=== PATIENT | male | born 1985 | race Caucasian/White ===

== ENCOUNTER → 2020-02-11 08:06 | Outpatient (BNVA) | payer SELFPAY | PROVIDERS: PCP Internal Medicine; Visit Provider Physician Assistant Medical | DX: Z76.89 Persons encountering health services in other specified circumstances (principal) ==

== ENCOUNTER → 2020-03-27 09:50 | Outpatient (BNVA) | payer OTHER, SELFPAY | PROVIDERS: Visit Provider Urology | DX: Z13.89 Encounter for screening for other disorder (principal) ==

== ENCOUNTER 2020-04-06 11:30 | Outpatient (REF) | payer OTHER, SELFPAY | END 2020-04-06 11:31 | disposition home or self-care (01) | LOC: HO.HMGCLDS 11:30 | PROVIDERS: PCP Internal Medicine; Visit Provider Internal Medicine | DX: Z20.828 Contact with and (suspected) exposure to other viral communicable diseases (principal) | CPT/HCPCS: C9803; U0003 ==

== ENCOUNTER 2020-04-14 11:59 | Outpatient (REF) | payer OTHER, SELFPAY | END 2020-04-14 12:00 | disposition home or self-care (01) | LOC: HO.HMGCLDS 11:59 | PROVIDERS: PCP Internal Medicine; Visit Provider Internal Medicine | DX: Z20.828 Contact with and (suspected) exposure to other viral communicable diseases (principal) | CPT/HCPCS: C9803; U0003 ==

== ENCOUNTER 2021-01-27 06:27 | Outpatient (REF) | payer OTHER, SELFPAY ==
[2021-01-27 07:06] LABS: MANUAL DIFF FLAG NO
[2021-01-27 07:11] LABS: Basophils Absolute Auto 0.1 X10*3/uL (0.0-0.2); Basophils Percent Auto 0.8 % (0-2); Eosinophils Absolute Auto 0.4 X10*3/uL (0.0-0.4); Eosinophils Percent Auto 4.7 % (0-4); Hematocrit 41.9 % (42-52); Imm Gran Abs Auto 0.03 X10*3/uL (0.00-0.03); Imm Gran Pct Auto 0.4 % (0.0-0.4); Lymphocytes Percent Auto 25.6 % (20-40); Mean Corpuscular Hemoglobin 22.6 pg (27.0-33.0); Mean Platelet Volume 10.2 fL (9.4-12.4); Monocytes Absolute Auto 1.3 X10*3/uL (0.1-1.2); Monocytes Percent Auto 15.9 % (2-11); Neutrophils Absolute Auto 4.2 X10*3/uL (2.0-8.3); Neutrophils Percent Auto 52.6 % (45-73); Platelet Count 314 X10*3/uL (160-400); Red Blood Count 5.74 X10*6/uL (4.60-5.80); Red Cell Distribution Width 14.5 % (11.0-16.0); White Blood Count 7.9 X10*3/uL (4.8-10.8)
[2021-01-27 07:50] LABS: Alanine Aminotransferase 94 U/L (0-40); Albumin Level 4.5 g/dL (3.5-5.0); Alkaline Phosphatase 84 U/L (39-117); Anion Gap 13 (12-20); Aspartate Amino Transferase 49 U/L (5-37); Bilirubin Total 0.4 mg/dL (0.0-1.0); Blood Urea Nitrogen 19 mg/dL (9-16); Calcium 10.2 mg/dL (8.4-10.2); Carbon Dioxide 25 mmol/L (22-29); Chloride 106 mmol/L (96-108); Cholesterol 214 mg/dL; Estimated Glomerular Filt Rate > 60; Glucose Fasting 94 mg/dL (60-99); HDL Cholesterol 60 mg/dL; LDL Cholesterol Calculated 121 mg/dl; Potassium 4.4 mmol/L (3.3-5.1); Sodium 140 mmol/L (135-145); Total Protein 7.7 g/dL (6.5-8.0); Triglycerides 167 mg/dL
== END 2021-01-27 06:28 | disposition home or self-care (01) ==
LOC: HO.LAB 06:27
PROVIDERS: PCP Internal Medicine; Visit Provider Internal Medicine
DX: E78.5 Hyperlipidemia, unspecified (principal); R74.01 Elevation of levels of liver transaminase levels; D64.9 Anemia, unspecified; K21.9 Gastro-esophageal reflux disease without esophagitis
CPT/HCPCS: 36415; 80053; 80061; 85025

== ENCOUNTER → 2021-03-30 10:06 | Outpatient (BNVA) | payer OTHER, SELFPAY | PROVIDERS: PCP Internal Medicine; Visit Provider Urology ==

== ENCOUNTER 2021-07-05 08:41 | Outpatient (REF) | payer OTHER, SELFPAY ==
[2021-07-05 11:22] LABS: MANUAL DIFF FLAG NO
[2021-07-05 11:37] LABS: Basophils Percent Auto 0.5 % (0-2); Eosinophils Absolute Auto 0.3 X10*3/uL (0.0-0.4); Eosinophils Percent Auto 3.5 % (0-4); Hematocrit 42.5 % (42.0-52.0); Hemoglobin 13.2 g/dl (14.0-18.0); Imm Gran Abs Auto 0.03 X10*3/uL (0.00-0.03); Imm Gran Pct Auto 0.4 % (0.0-0.4); Lymphocytes Percent Auto 26.8 % (20-40); Mean Corpuscular HGB Conc 31.1 g/dl (31.0-36.0); Mean Corpuscular Hemoglobin 22.6 pg (27.0-33.0); Mean Corpuscular Volume 72.9 fL (80.0-98.0); Mean Platelet Volume 10.4 fL (9.4-12.4); Monocytes Absolute Auto 1.1 X10*3/uL (0.1-1.2); Neutrophils Percent Auto 53.8 % (45-73); Platelet Count 336 X10*3/uL (160-400); Red Blood Count 5.83 X10*6/uL (4.60-5.80); Red Cell Distribution Width 14.5 % (11.0-16.0); White Blood Count 7.4 X10*3/uL (4.8-10.8)
[2021-07-05 12:09] LABS: Alanine Aminotransferase 59 U/L (0-40); Albumin Level 4.4 g/dL (3.5-5.0); Alkaline Phosphatase 95 U/L (39-117); Anion Gap 14 (12-20); Aspartate Amino Transferase 28 U/L (5-37); Bilirubin Total 0.5 mg/dL (0.0-1.0); Blood Urea Nitrogen 15 mg/dL (9-16); Calcium 9.8 mg/dL (8.4-10.2); Carbon Dioxide 26 mmol/L (22-29); Chloride 104 mmol/L (96-108); Cholesterol 221 mg/dL; Estimated Glomerular Filt Rate > 60; Glucose Fasting 83 mg/dL (60-99); HDL Cholesterol 55 mg/dL; LDL Cholesterol Calculated 146 mg/dl; Potassium 4.8 mmol/L (3.3-5.1); Sodium 139 mmol/L (135-145); Total Protein 7.9 g/dL (6.5-8.0); Triglycerides 101 mg/dL
[2021-07-05 12:53] LABS: Folate 17.6 ng/mL (> or = 4.0); Vitamin B12 381 pg/mL (200-900)
[2021-07-09 13:35] LABS: Vitamin D 25-OH, D2 <4 ng/mL; Vitamin D 25-OH, D3 19 ng/mL; Vitamin D 25-OH, Total 19 ng/mL (30-100)
== END 2021-07-05 08:42 | disposition home or self-care (01) ==
LOC: HO.HMGCX 08:41
PROVIDERS: PCP Internal Medicine; Visit Provider Internal Medicine
DX: E78.5 Hyperlipidemia, unspecified (principal); E53.8 Deficiency of other specified B group vitamins; E55.9 Vitamin D deficiency, unspecified; R74.8 Abnormal levels of other serum enzymes
CPT/HCPCS: 36415; 80053; 80061; 82306; 82607; 82746; 85025

== ENCOUNTER 2022-02-21 08:43 | Outpatient (REF) | payer OTHER, SELFPAY ==
[2022-02-21 11:20] LABS: MANUAL DIFF FLAG NO
[2022-02-21 11:48] LABS: Basophils Absolute Auto 0.1 X10*3/uL (0.0-0.2); Basophils Percent Auto 1.1 % (0-2); Eosinophils Absolute Auto 0.3 X10*3/uL (0.0-0.4); Eosinophils Percent Auto 4.5 % (0-4); Hematocrit 42.1 % (42.0-52.0); Hemoglobin 13.2 g/dl (14.0-18.0); Imm Gran Abs Auto 0.03 X10*3/uL (0.00-0.03); Imm Gran Pct Auto 0.4 % (0.0-0.4); Lymphocytes Absolute Auto 1.7 X10*3/uL (1.2-4.9); Lymphocytes Percent Auto 23.5 % (20-40); Mean Corpuscular HGB Conc 31.4 g/dl (31.0-36.0); Mean Corpuscular Hemoglobin 22.5 pg (27.0-33.0); Mean Corpuscular Volume 71.7 fL (80.0-98.0); Mean Platelet Volume 10.9 fL (9.4-12.4); Monocytes Absolute Auto 1.1 X10*3/uL (0.1-1.2); Monocytes Percent Auto 15.5 % (2-11); Platelet Count 309 X10*3/uL (160-400); Red Blood Count 5.87 X10*6/uL (4.60-5.80); Red Cell Distribution Width 14.6 % (11.0-16.0); White Blood Count 7.3 X10*3/uL (4.8-10.8)
[2022-02-21 12:20] LABS: Vitamin D 25-OH Total 29.1 ng/mL (>30)
[2022-02-21 12:29] LABS: Vitamin B12 341 pg/mL (200-900)
[2022-02-21 12:36] LABS: Alanine Aminotransferase 53 U/L (0-40); Albumin Level 4.5 g/dL (3.5-5.0); Alkaline Phosphatase 93 U/L (39-117); Anion Gap 16 (12-20); Aspartate Amino Transferase 28 U/L (5-37); Bilirubin Total 0.4 mg/dL (0.0-1.0); Blood Urea Nitrogen 20 mg/dL (9-16); Calcium 9.7 mg/dL (8.4-10.2); Carbon Dioxide 25 mmol/L (22-29); Chloride 103 mmol/L (96-108); Cholesterol 210 mg/dL; Estimated Glomerular Filt Rate > 60; Glucose Fasting 91 mg/dL (60-99); HDL Cholesterol 59 mg/dL; LDL Cholesterol Calculated 133 mg/dl; Potassium 4.6 mmol/L (3.3-5.1); Sodium 139 mmol/L (135-145); Triglycerides 92 mg/dL
[2022-03-01 20:21] LABS: Testosterone, Free 110.7 pg/mL (35.0-155.0); Testosterone, Total 383 ng/dL (250-1100)
== END 2022-02-21 08:44 | disposition home or self-care (01) ==
LOC: HO.HMGCLDS 08:43
PROVIDERS: PCP Internal Medicine; Visit Provider Internal Medicine
DX: E55.9 Vitamin D deficiency, unspecified (principal); E78.5 Hyperlipidemia, unspecified; E53.8 Deficiency of other specified B group vitamins; K21.9 Gastro-esophageal reflux disease without esophagitis; D64.9 Anemia, unspecified; N52.01 Erectile dysfunction due to arterial insufficiency
CPT/HCPCS: 36415; 80053; 80061; 82306; 82607; 82746; 84402; 84403; 85025

== ENCOUNTER → 2022-08-12 10:57 | Outpatient (BNVA) | payer SELFPAY | PROVIDERS: PCP Internal Medicine; Visit Provider Physician Assistant | DX: Z02.79 Encounter for issue of other medical certificate (principal) ==

== ENCOUNTER 2022-11-24 09:14 | Outpatient (REF) | payer OTHER, SELFPAY ==
[2022-11-24 14:53] LABS: Alanine Aminotransferase 75 U/L (0-40); Albumin Level 4.2 g/dL (3.5-5.0); Alkaline Phosphatase 87 U/L (39-117); Anion Gap 14 (12-20); Aspartate Amino Transferase 32 U/L (5-37); Bilirubin Total 0.8 mg/dL (0.0-1.0); Blood Urea Nitrogen 16 mg/dL (9-16); Calcium 9.7 mg/dL (8.4-10.2); Carbon Dioxide 23 mmol/L (22-29); Chloride 107 mmol/L (96-108); Cholesterol 219 mg/dL; Estimated Glomerular Filt Rate > 60; Glucose Fasting 81 mg/dL (60-99); HDL Cholesterol 49 mg/dL; LDL Cholesterol Calculated 153 mg/dl; Potassium 4.2 mmol/L (3.3-5.1); Sodium 140 mmol/L (135-145); Total Protein 7.8 g/dL (6.5-8.0); Triglycerides 87 mg/dL
[2022-11-24 14:56] LABS: Vitamin D 25-OH Total 40.4 ng/mL (>30)
[2022-11-24 15:50] LABS: Folate 19.1 ng/mL (> or = 4.0); Vitamin B12 577 pg/mL (200-900)
[2022-11-29 15:44] LABS: Venous Lead 2.1 mcg/dL (<3.5)
== END 2022-11-24 09:15 | disposition home or self-care (01) ==
LOC: HO.HMGCLDS 09:14
PROVIDERS: PCP Internal Medicine; Visit Provider Internal Medicine
DX: E78.5 Hyperlipidemia, unspecified (principal); E53.8 Deficiency of other specified B group vitamins; E55.9 Vitamin D deficiency, unspecified; Z77.011 Contact with and (suspected) exposure to lead
CPT/HCPCS: 36415; 80053; 80061; 82306; 82607; 82746; 83655

== ENCOUNTER 2023-01-05 07:56 | Outpatient (AMB) | payer OTHER, SELFPAY ==
--- NOTE | 2023-01-05 07:57 | A.OFFPC_ITS ---
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 Accompanied by: Self / Same As Patient Allergies Penicillins [PCN] Allergy (Intermediate, Verified 01/05/23 08:11) Hives Medication List - Last Reconciled 01/05/23 by Darshana Justin MD cholecalciferol (vitamin D3) 25 mcg PO DAILY 90 days folic acid 1 mg PO DAILY 90 days ibuprofen 800 mg PO TID 30 days omeprazole 40 mg PO QAM sertraline 25 mg PO DAILY 90 days sildenafil 100 mg PO DAILY PRN 30 days sucralfate 1 g PO BID 30 days Tobacco use date assessed: 10/27/22 Dental Screening Dental Screen Date: 01/05/23 Did you have a dental visit in the last 12 months?: Yes Did you have a dental problem in the last 6 months where you did not have access to dental care?: No Was dental information given to patient?: Patient has dentist HPI HPI Comments History of Present Illness Details This is 37-year-old male with GERD, erectile dysfunction, anxiety and low vitamin-D that comes today complaining of more epigastric pain burning like in quality associated with foods most likely due to GERD that has improved with Carafate. He used to be on omeprazole 20 mg that then needed and increase to 40 mg. Has Gastroenterology appointment in March. No nausea or vomiting. No change in bowel or bladder habits. Her rectal dysfunction stable with Viagra as needed. Anxiety stable with sertraline. On vitamin-D supplements for his low vitamin-D. [facility] Medical History (Updated 01/05/23 @ 08:23 by Darshana Justin MD) Anxiety B12 deficiency Dyslipidemia GERD (gastroesophageal reflux disease) Insomnia Transaminitis Surgical History History of vasectomy Family History Father Hodgkin lymphoma Paternal Aunt Hodgkin lymphoma Paternal Uncle Hodgkin lymphoma Maternal Grandfather No problems noted. Paternal Grandmother No problems noted. Mother No problems noted. Social History Housing: Apartment Alcohol intake: current Alcohol intake frequency: a few times a month Alcohol type: beer Patient Tobacco Use Status: Never used Tobacco e-Cigarette/Vaping Use: Never Used Second Hand Smoke Exposure: No service: No Current occupational status: employed Current occupational exposures/hazards: No Cognitive needs: No Hearing needs: No Vision needs: No Questionnaire Thrive Questionnaire Date Thrive assessed: 10/27/22 SINGH-7 AMB Questionnaire SINGH-7 Date SINGH - 7 assessed: 10/27/22 Source: Developed by Drs. Flaco Brambila, Mckenzie Barr, Arturo Miranda and colleagues, with an educational harish from [employer]. Review of Systems Const All systems reviewed & are unremarkable except as noted in HPI and below Eyes Reports no additional complaints, Denies change in vision and Denies other visual disturbances Card Denies chest pain at rest, Denies chest pain with activity, Denies edema, Denies irregular heart rhythm, Denies claudication, Denies dyspnea, Denies dyspnea on exertion, Denies orthopnea, Denies paroxysmal nocturnal dyspnea and Denies slow heart rate Resp Denies cough, Denies dyspnea and Denies dyspnea on exertion GI Denies abdominal pain, Denies change in bowel habits, Denies excessive flatus, Reports heartburn, Denies nausea and Denies vomiting Denies urinary hesitancy, Denies urinary incontinence and Denies urinary urgency Musc Denies abnormal gait, Denies atrophy, Denies deformity and Denies limited range of motion Skin/Breast Denies bleeding lesions, Denies changing lesions and Denies rash Neuro Denies abnormal gait and Denies lack of coordination Physical exam (Primary Care) Vital Signs: Last Vital Signs BP 120/82 01/05/23 07:58 BMI result Body Mass Index 30.9 Tobacco/Smoking Status: Tobacco use Status Tobacco use date assessed 10/27/22 01/05/23 08:03 Patient Tobacco Use Status Never used Tobacco 01/05/23 08:03 Tobacco use type 10/27/22 16:28 e-Cigarette/Vaping Use Never Used 01/05/23 08:03 Thrive Assessment: Date of Thrive Assessment Date Thrive assessed 10/27/22 01/05/23 08:03 Eyes General: appearance normal, both eyes and all related structures Eyelids: Yes eyelids normal Conjunctivae: conjunctivae normal Neck Neck: Yes normal visual inspection and Yes supple Resp Effort & Inspection: normal respiratory effort Auscultation: clear to auscultation bilaterally Cardio Jugular venous distension: no JVD Rate: regular rate Rhythm: regular rhythm Heart sounds: S1 normal heart sound present and S2 normal heart sound present GI Inspection: Yes normal to inspection Palpation (GI): Soft to palpation and nontender Auscultation: normal bowel sounds Extrem General: Yes full ROM Assessment and Plan Assessment & Plan (1) GERD (gastroesophageal reflux disease): Code(s): K21.9 - Gastro-esophageal reflux disease without esophagitis Qualifiers: Esophagitis presence: esophagitis presence not specified Qualified Code(s): K21.9 - Gastro-esophageal reflux disease without esophagitis Plan: Continue PPIs and Carafate. Follow up with Gastroenterology in March. (2) Anxiety: Code(s): F41.9 - Anxiety disorder, unspecified Plan: Continue sertraline. (3) Erectile dysfunction: Code(s): N52.9 - Male erectile dysfunction, unspecified Plan: Continue Viagra as needed. (4) Hypovitaminosis D: Code(s): E55.9 - Vitamin D deficiency, unspecified Plan: Continue vitamin-D supplements. Orders: Orders FL upper GI series Today K21.9 - Gastro-esophageal reflux disease without esophagitis Coding Level of Care Code Est Pt Level 4 (19172) Diagnoses GERD (gastroesophageal reflux disease) K21.9 Esophagitis presence: esophagitis presence not specified Anxiety F41.9 Erectile dysfunction N52.9 Hypovitaminosis D E55.9 Time Spent (min) 23
[2023-01-05 07:58] VITALS: BP 120/82; BMI 30.9
== END 2023-01-05 08:19 | disposition home or self-care (01) ==
PROVIDERS: PCP Internal Medicine; Visit Provider Internal Medicine
DX: K21.9 Gastro-esophageal reflux disease without esophagitis (principal); F41.9 Anxiety disorder, unspecified; N52.9 Male erectile dysfunction, unspecified; E55.9 Vitamin D deficiency, unspecified
CPT/HCPCS: 99214

== ENCOUNTER 2023-04-11 09:24 | Outpatient (REF) | payer OTHER, SELFPAY ==
--- NOTE | ~2023-04-11 | FL_ITS ---
EXAMINATION: XR FLUOROSCOPY UPPER GI WITH AIR CLINICAL INFORMATION: Epigastric pain relieved with PPI. COMPARISON: None TECHNIQUE: Fluoroscopic air contrast upper GI examination was performed utilizing standard techniques with thin and thick barium and effervescent granules. Numerous spot images were obtained. FINDINGS: Dual and single contrast images of the esophagus demonstrate normal caliber, contour, and mucosal pattern. No evidence of stricture, mass, or ulcerations identified. Esophageal peristalsis was normal. A small type I hiatal hernia is present. There is significant gaseous esophageal reflux seen up to the thoracic inlet. Dual contrast and single contrast images of the stomach demonstrated normal contour and mucosal pattern without evidence of mass, ulceration, or other abnormality. Contrast freely passed into the gastric antrum and duodenal bulb without delay. Single and air-contrast images of the duodenal bulb demonstrate no abnormality. The duodenal sweep has a normal appearance, course, and mucosal fold appearance. The imaged proximal jejunum has a normal fold pattern and caliber. FLUOROSCOPY TIME: 3 minutes 56 seconds Number of Spot Images: 16 Number of Cine: 5 DOSE AREA PRODUCT: 2786 uGy-m2 (microgray-meter squared) FL/FL upper GI series IMPRESSION: 1. Small type I hiatal hernia 2. Significant gastroesophageal reflux This procedure was performed by Jj Guzmán PA-C, and supervised by Dr. Cerna
== END 2023-04-11 09:25 | disposition home or self-care (01) ==
LOC: HO.XRAY 09:24
PROVIDERS: PCP Internal Medicine; Visit Provider Internal Medicine
DX: K21.9 Gastro-esophageal reflux disease without esophagitis (principal)
CPT/HCPCS: 74240

== ENCOUNTER → 2023-04-11 09:26 | Outpatient (BNV) | payer OTHER, SELFPAY | PROVIDERS: PCP Internal Medicine; Visit Provider Radiology Diagnostic Radiology | DX: K21.9 Gastro-esophageal reflux disease without esophagitis (principal) | CPT/HCPCS: 74246 ==

== ENCOUNTER 2023-07-14 08:20 | Outpatient (AMB) | payer OTHER, SELFPAY ==
--- NOTE | 2023-07-14 08:40 | MHC.OFFVIS ---
Intake Intake Visit Reasons: Erectile dys follow up Intake Note: Patient is Present for Telephone Follow Up For Urology Med: Sildenafil Antibiotic Allergy: None Blood Thinner: None Allergies Penicillins [PCN] Allergy (Intermediate, Verified 07/14/23 08:40) Hives HPI HPI Comments History of Present Illness Details Nato is a pleasant male. He is a patient Dr. Justin. He is seen for the following urologic issues - erectile dysfunction Yearly follow-up [place] translation provided in office by qualified medical illustrator Continues to have good effect with oral medications - sildenafil 100 mg Prescription provided Refill in 1 year Erectile dysfunction: He presents today for for continued evaluation and management of erectile dysfunction - good effect with viagra - has T around 400 from prior testing - 02/26 383 Symptoms have been present for/since Symptoms present since early May 2016. Has desire but is not maintaining an erection.. Current treatment includes Viagra/sildenafil. At this time he experiences erections are partial and adequate for vaginal penetration, that last until ejaculation. Currently they are in a stable relationship - accompanied by partner today. Overall he is satisfied with the current management. Therapeutic plan includes Continue with medications as needed PFSH Medical History B12 deficiency Dyslipidemia Transaminitis Insomnia GERD (gastroesophageal reflux disease) Anxiety Surgical History History of vasectomy Family History Father Hodgkin lymphoma Paternal Aunt Hodgkin lymphoma Paternal Uncle Hodgkin lymphoma Maternal Grandfather No problems noted. Paternal Grandmother No problems noted. Mother No problems noted. Social History Housing: Apartment Alcohol intake: current Alcohol intake frequency: a few times a month Alcohol type: beer Patient Tobacco Use Status: Never used Tobacco e-Cigarette/Vaping Use: Never Used Second Hand Smoke Exposure: No service: No Current occupational status: employed Current occupational exposures/hazards: No Cognitive needs: No Hearing needs: No Vision needs: No Review of Systems Const Denies chills and Denies fever(s) Card Reports no additional complaints and Denies syncope Resp Denies cough GI Denies abdominal pain and Denies heartburn Reports as per HPI and Denies change in libido Neuro Denies syncope Psych Denies change in libido Endo Denies change in libido Physical Exam Const General: cooperative, healthy appearing, comfortable and no acute distress Orientation/consciousness: patient oriented x3 HEENT Face and sinus: Yes normal facial exam Mouth: moist mucous membranes Neck Neck: Yes normal visual inspection, Yes full ROM and Yes trachea midline Chest Chest palpation & inspection: normal inspection of the chest Resp Effort & Inspection: normal respiratory effort, able to speak in complete sentences and no respiratory distress GI Inspection: Yes normal to inspection Back/Spine/Pelvis Cervical Spine: normal cervical lordosis Thoracic/Lumbar Spine: thoracic and lumbar spine normal to inspection Skin General skin exam: no rashes or lesions noted Neuro General: patient oriented x3, gait normal, tone normal and moves all extremities Extrem General: Yes normal to inspection and Yes capillary refill normal Assessment & Plan Assessment & Plan (1) Erectile dysfunction: Code(s): N52.9 - Male erectile dysfunction, unspecified Plan Twelve month follow-up Patient Instructions: Imaging studies, laboratory and physical exam results were discussed and reviewed in detail. No major barriers to patient understanding were identified. An opportunity to ask questions regarding the treatment plan was provided. All questions were answered. The patient expressed understanding and agreement with the above treatment plan. The patient is aware they should contact our office by phone for worsening of their current condition or the appearance of new urologic symptoms. Compliance is encouraged with any medications and followup testing that is ordered. It is a privilege to participate in the urologic care of your patient. If you have any questions or concerns regarding treatment for the above conditions, or other urologic issues, please do not hesitate to contact me. The office telephone contact is [phone]. This note is constructed using voice recognition software. While every effort has been made to ensure accuracy imaging manager errors may have been included. Yours sincerely, Dr Vikram Broderick MD, [facility] - Urology Providers of Expert, Compassionate Care for the Genitourinary System Coding Level of Care Code Est Pt Level 4 (72508) Diagnoses Erectile dysfunction N52.9
== END 2023-07-14 09:43 | disposition home or self-care (01) ==
PROVIDERS: PCP Internal Medicine; Visit Provider Urology
DX: N52.9 Male erectile dysfunction, unspecified (principal)
CPT/HCPCS: 99213

== ENCOUNTER → 2023-07-14 08:20 | Outpatient (BNVA) | payer OTHER, SELFPAY | PROVIDERS: PCP Internal Medicine; Visit Provider Urology | DX: N52.9 Male erectile dysfunction, unspecified (principal) | CPT/HCPCS: 99212 ==

== ENCOUNTER 2023-11-01 17:11 | Outpatient (AMB) | payer OTHER, SELFPAY ==
--- NOTE | 2023-11-01 17:17 | A.OFFPC_ITS ---
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 by: Self / Same As Patient Allergies Penicillins [PCN] Allergy (Intermediate, Verified 11/01/23 17:48) Hives Medication List - Last Reconciled 11/01/23 by Darshana Justin MD buspirone 10 mg PO TID 90 days cholecalciferol (vitamin D3) 25 mcg PO DAILY 90 days folic acid 1 mg PO DAILY 90 days pantoprazole 40 mg PO DAILY 90 days semaglutide (weight loss) (Wegovy) 0.25 mg (0.5 mL) subcut QWEEK 28 days sertraline 25 mg PO DAILY 90 days sildenafil 100 mg PO DAILY PRN 30 days sucralfate 1 g PO BID 30 days topiramate 25 mg PO BEDTIME 90 days Tobacco use date assessed: 11/01/23 Dental Screening Dental Screen Date: 11/01/23 Did you have a dental visit in the last 12 months?: No Did you have a dental problem in the last 6 months where you did not have access to dental care?: No Was dental information given to patient?: Patient has dentist HPI HPI Comments History of Present Illness Details This is a 38-year-old male that comes for his physical exam. Still complains of GERD and was advised to discontinue drinking alcohol. Has Gastroenterology appointment in January. No other acute complaints. [facility] Medical History B12 deficiency Dyslipidemia Transaminitis Insomnia GERD (gastroesophageal reflux disease) Anxiety Surgical History History of vasectomy Family History Father Hodgkin lymphoma Paternal Aunt Hodgkin lymphoma Paternal Uncle Hodgkin lymphoma Maternal Grandfather No problems noted. Paternal Grandmother No problems noted. Mother No problems noted. Social History Housing: Apartment Alcohol intake: current Alcohol intake frequency: a few times a month Alcohol type: beer Patient Tobacco Use Status: Never used Tobacco e-Cigarette/Vaping Use: Never Used Second Hand Smoke Exposure: No service: No Current occupational status: employed Current occupational exposures/hazards: No Cognitive needs: No Hearing needs: No Vision needs: No Questionnaire PHQ-9 Over the last 2 weeks, how often have you been bothered by any of the following problems? 1. Little interest or pleasure in doing things: not at all 2. Feeling down, depressed, or hopeless: not at all 3. Trouble falling or staying asleep, or sleeping too much: not at all 4. Feeling tired or having little energy: not at all 5. Poor appetite or overeating: not at all 6. Feeling bad about yourself - or that you are a failure or have let yourself or your family down: not at all 7. Trouble concentrating on things, such as reading the newspaper or watching television: not at all 8. Moving or speaking so slowly that other people could have noticed. Or the opposite - being so fidgety or restless that you have been moving around a lot more than usual: not at all 9. Thoughts that you would be better off or of hurting yourself in some way: not at all Total score: 0 Depression Screening Interpretation: Negative Depression Screening Done: Yes 56369 - PHQ-9 Billing: Yes Source: Developed by Drs. Flaco Brambila, Mckenzie Barr, Arturo Miranda and colleagues, with an educational harish from [employer]. Thrive Questionnaire Date Thrive assessed: 11/01/23 I am a: Patient What is your living situation today?: I have a steady place to live Within the past 12 months, did the food you bought not last and you didn't have the money to get more?: Never true Within the past 12 months, did you worry whether your food would run out before you got money to buy more?: Never true Do you have trouble paying for medicines?: No Do you have trouble getting transportation to medical appointments?: No Do you have trouble paying your heating and electricity bill?: No Do you have trouble taking care of your child, family member or friend?: No Do you have trouble with day-to-day activities such as bathing, preparing meals, shopping, managing finances, etc.?: No Are you currently unemployed and looking for a job?: No Are you interested in more education?: No Please select the resources that you would like help with: None Currently or been in a relationship where the following occur: No concerns reported THRIVE Score: 0 AUDIT C Alcohol Use Questionnaire (AUDIT-C) 1. How often do you have a drink containing alcohol?: 2-4 times a month 2. How many drinks containing alcohol do you have on a typical day when you are drinking?: 7 to 9 3. How often do you have six or more drinks on one occasion?: Monthly Total Score: 7 Score Reviewed/Action Taken: Yes SINGH-7 AMB Questionnaire SINGH-7 Date SINGH - 7 assessed: 11/01/23 Feeling nervous, anxious, or on edge: 0 = Not at all Not being able to stop or control worryin = Not at all Worrying too much about different things: 0 = Not at all Trouble relaxin = Not at all Being so restless that it is hard to sit still: 0 = Not at all Becoming easily annoyed or irritable: 0 = Not at all Feeling afraid as if something awful might happen: 0 = Not at all Total SINGH-7 score (0-4 normal; 5-9 mild; 10-14 moderate; 15-21 severe): 0 Source: Developed by Drs. Flaco Brambila, Mckenzie Barr, Arturo Miranda and colleagues, with an educational harish from [employer]. SINGH-7 Assessment Billing SINGH-7 Assessment Tool: SINGH-7 Assessment 11804 Review of Systems Const All systems reviewed & are unremarkable except as noted in HPI and below Card Denies chest pain at rest, Denies chest pain with activity, Denies edema, Denies irregular heart rhythm, Denies claudication, Denies dyspnea, Denies dyspnea on exertion, Denies orthopnea, Denies paroxysmal nocturnal dyspnea and Denies slow heart rate Resp Denies cough, Denies dyspnea and Denies dyspnea on exertion GI Reports heartburn Neuro Denies behavioral changes Psych Denies behavioral changes Physical exam (Primary Care) Vital Signs: Last Vital Signs Pulse 86 11/01/23 17:19 BP 126/76 11/01/23 17:19 Pulse Ox 97 11/01/23 17:19 Oxygen Delivery Method Room Air 11/01/23 17:19 BMI result Body Mass Index 30.6 Tobacco/Smoking Status: Tobacco use Status Tobacco use date assessed 11/01/23 11/01/23 17:23 Patient Tobacco Use Status Never used Tobacco 11/01/23 17:18 Tobacco use type 10/27/22 16:28 e-Cigarette/Vaping Use Never Used 11/01/23 17:18 PHQ-9: PHQ-9 Score PHQ-9: Total score 0 11/01/23 17:56 Depression Screening Interpretation: Negative Thrive Assessment: Date of Thrive Assessment Date Thrive assessed 11/01/23 11/01/23 17:23 Currently or been in a relationship where the following occur: No concerns reported HENDE Head: Yes normal to inspection, Yes normocephalic and Yes atraumatic Ears: external ears normal Eyes General: appearance normal, both eyes and all related structures Eyelids: Yes eyelids normal Conjunctivae: conjunctivae normal Neck Neck: Yes normal visual inspection and Yes supple Resp Effort & Inspection: normal respiratory effort Auscultation: clear to auscultation bilaterally Cardio Jugular venous distension: no JVD Rate: regular rate Rhythm: regular rhythm Heart sounds: S1 normal heart sound present and S2 normal heart sound present GI Inspection: Yes normal to inspection Palpation (GI): Soft to palpation and nontender Auscultation: normal bowel sounds Skin General skin exam: no rashes or lesions noted Neuro General: no focal motor deficits Extrem General: Yes full ROM Psych Appearance: grossly normal Assessment and Plan Assessment & Plan (1) Physical exam: Code(s): Z00.00 - Encounter for general adult medical examination without abnormal findings Plan: Repeat in a year. Orders: Orders Vitamin D 25-OH Total Today E55.9 - Vitamin D deficiency, unspecified Vitamin B12 and Folate Today E53.8 - Deficiency of other specified B group vitamins Parietal Cell Antibody Today E53.8 - Deficiency of other specified B group vitamins Intrinsic Factor Antibodies Today E53.8 - Deficiency of other specified B group vitamins Lipid Panel Today E78.5 - Hyperlipidemia, unspecified, Z00.00 - Encounter for general adult medical examination without abnormal findings Comprehensive [place]. Panel Fast Today Z00.00 - Encounter for general adult medical examination without abnormal findings Coding Level of Care Code Est Pt Prev Care 40-64y(99423) Diagnoses Physical exam Z00.00 Additional Codes SINGH-7 Assessment Billing - SINGH-7 Assessment Tool: SINGH-7 Assessment 97035 ([id number]) Time Spent (min) 30
[2023-11-01 17:19] VITALS: BP 126/76; PULSE 86; O2SAT 97; BMI 30.6
== END 2023-11-01 17:57 | disposition home or self-care (01) ==
PROVIDERS: PCP Internal Medicine; Visit Provider Internal Medicine
DX: Z00.00 Encounter for general adult medical examination without abnormal findings (principal)
CPT/HCPCS: 99396

== ENCOUNTER 2023-11-02 06:36 | Outpatient (REF) | payer OTHER, SELFPAY ==
[2023-11-02 08:14] LABS: Alanine Aminotransferase 45 U/L (0-40); Albumin Level 4.2 g/dL (3.5-5.0); Alkaline Phosphatase 99 U/L (39-117); Anion Gap 13 (12-20); Aspartate Amino Transferase 27 U/L (5-37); Bilirubin Total 0.5 mg/dL (0.0-1.0); Blood Urea Nitrogen 17 mg/dL (9-16); Calcium 9.7 mg/dL (8.4-10.2); Carbon Dioxide 22 mmol/L (22-29); Chloride 109 mmol/L (96-108); Cholesterol 206 mg/dL (<200); Estimated Glomerular Filt Rate > 60; Glucose Fasting 93 mg/dL (60-99); HDL Cholesterol 58 mg/dL (>40); LDL Cholesterol Calculated 128 mg/dL (<100); Sodium 140 mmol/L (135-145); Total Protein 7.8 g/dL (6.5-8.0); Triglycerides 102 mg/dL (<150)
[2023-11-02 08:41] LABS: Folate 10.5 ng/mL (> or = 4.0); Vitamin B12 438 pg/mL (200-900)
[2023-11-05 21:38] LABS: Intrinsic Factor Antibodies Negative (Negative)
[2023-11-06 13:32] LABS: Parietal Cell Antibody <=20.0 Unit (<=20.0)
== END 2023-11-02 06:37 | disposition home or self-care (01) ==
LOC: HO.LAB 06:36
PROVIDERS: PCP Internal Medicine; Visit Provider Internal Medicine
DX: Z00.00 Encounter for general adult medical examination without abnormal findings (principal); E53.8 Deficiency of other specified B group vitamins; E55.9 Vitamin D deficiency, unspecified; E78.5 Hyperlipidemia, unspecified
CPT/HCPCS: 36415; 80053; 80061; 82306; 82607; 82746; 83516; 86340

== ENCOUNTER 2024-01-26 08:27 | Outpatient (REF) | payer OTHER, SELFPAY ==
--- NOTE | ~2024-01-26 | US_ITS ---
EXAMINATION: US COMPLETE ABDOMEN WITH LIVER ELASTOGRAPHY CLINICAL INFORMATION: Fatty liver with abdominal pain. COMPARISON: None available. TECHNIQUE: Real-time imaging of the abdominal viscera. Noninvasive ultrasound liver fibrosis assessment is performed using Adelina ElastPQ point quantification shear wave elastography (pSWE) with a C5-2 MHz transducer. Multiple elastography samples are obtained. FINDINGS: PANCREAS: The visualized portions of the pancreas are unremarkable but a large portion of the gland is obscured by bowel gas. ABDOMINAL AORTA: The proximal, middle, and distal aortic segments are normal in caliber. INFERIOR VENA CAVA: Visualized portions are normal. LIVER: The liver is normal in size and contour but demonstrates increased echogenicity, consistent with hepatic steatosis. No focal lesion or intrahepatic biliary duct dilatation. The right lobe measures 15.7 cm in length. The left lobe measures 8.2 cm in length. Portal flow is towards the liver (hepatopetal). Shear wave liver elastography median stiffness is 1.27 m/s (reference: normal median stiffness is 1.3 m/s or less). IQR/median stiffness to assess sampling precision is 0.05 (reference: good quality data set is IQR/median stiffness of 0.15 or less). GALLBLADDER: Normal. The gallbladder is physiologically distended without evidence of stones, sludge, polyps, wall thickening or pericholecystic fluid. COMMON BILE DUCT: Normal in caliber measuring 0.3 cm in diameter. RIGHT KIDNEY: Normal. No hydronephrosis. No renal calculi or focal parenchymal lesions. The kidney measures 10.6 cm in maximum dimension. LEFT KIDNEY: Normal. No hydronephrosis. No renal calculi or focal parenchymal lesions. The kidney measures 11.6 cm in maximum dimension. SPLEEN: Normal. The spleen measures 9.5 cm in maximum dimension. FREE FLUID: None. US/US abdomen comp w elastography IMPRESSION: 1. Hepatic steatosis. 2. Liver elastography: Measurements are consistent with a high probability of normal liver stiffness. REFERENCE: Society of Radiologists in Ultrasound Liver Stiffness Thresholds (2020): LIVER STIFFNESS THRESHOLDS: *Liver Stiffness equal or less than 1.3 m/s: High probability of being normal. *Liver Stiffness less than 1.7 m/s: In the absence of other known clinical signs, rules out compensated advanced chronic liver disease. *Liver Stiffness 1.7-2.1 m/s: Suggestive of compensated advanced chronic liver disease but need further test for confirmation. *Liver Stiffness over 2.1 m/s: Rules in compensated advanced chronic liver disease. *Liver Stiffness over 2.4 m/s: Suggestive of clinically significant portal hypertension. QUALITY OF DATA SET: *IQR/Median value equal or less than 0.15 implies a quality data set. *IQR/Median value over 0.15 implies a poor quality data set. SIGNIFICANT CHANGE FROM PRIOR EXAM: Significant change if liver stiffness measurement is 10% or greater from prior exam. OTHER CONSIDERATIONS: The stage of liver fibrosis may be overestimated in the setting of acute hepatitis, liver inflammation, elevated liver function tests, hepatic vascular congestion, obstructive cholestasis, non-fasting state, and infiltrative diseases such as amyloidosis and lymphoma. In some patients with NAFLD, the liver stiffness thresholds for compensated advanced chronic liver disease may be lower. In causes other than viral hepatitis and NAFLD, liver stiffness thresholds are not well established. Electronically signed by: Tomasz Kenney MD 01/31/2024 05:05 PM EDT
== END 2024-01-26 08:28 | disposition home or self-care (01) ==
LOC: HO.US 08:27
PROVIDERS: PCP Internal Medicine; Visit Provider Internal Medicine
DX: R10.13 Epigastric pain (principal); K76.0 Fatty (change of) liver, not elsewhere classified
CPT/HCPCS: 76700; 76981

== ENCOUNTER 2024-05-10 07:08 | Day surgery (SDC) | payer OTHER, SELFPAY ==
[2024-05-07 15:44] VITALS: BMI 28.9
--- NOTE | 2024-05-09 09:52 | P.CONAN_ITS ---
Documented by User: Bhargavi Willingham NP 05/09/24 09:53 HPI - Anesthesia Eval Consult details Narrative: 38yo M for Upper Endoscopy Anesthesia Pre-Procedure Meds Is the patient on any of the following meds?: GLP1/DPP4 PMFSH Active Problems Active Problems: All Active Problems Suspected exposure to asbestos (Acute) Hypovitaminosis D (Acute) Erectile dysfunction (Acute) Physical exam (Acute) Lead exposure (Acute) B12 deficiency (Acute) Dyslipidemia (Acute) Transaminitis (Acute) Insomnia (Acute) GERD (gastroesophageal reflux disease) (Acute) Anxiety (Acute) Past Medical History Medical History B12 deficiency Dyslipidemia Transaminitis Insomnia GERD (gastroesophageal reflux disease) Anxiety Family History Family History Father Hodgkin lymphoma Paternal Aunt Hodgkin lymphoma Paternal Uncle Hodgkin lymphoma Maternal Grandfather No problems noted. Paternal Grandmother No problems noted. Mother No problems noted. Surgical History Surgical History History of vasectomy Social History Social History Housing: Apartment Alcohol intake: current Alcohol intake frequency: a few times a month Alcohol type: beer Patient Tobacco Use Status: Never used Tobacco e-Cigarette/Vaping Use: Never Used Second Hand Smoke Exposure: No Advance Directives: No Advance Directives Information Provided: Yes service: No Current occupational status: employed Current occupational exposures/hazards: No Cognitive needs: No Hearing needs: No Vision needs: No Meds Allergies Allergy/AdvReac Type Severity Reaction Status Date / Time Penicillins [PCN] Allergy Intermediate Hives Verified 05/10/24 07:58 Exam Height,Weight and Vital Signs: Height 5 ft 8 in Weight 86.183 kg Assessment and Plan Assessment Anesthesia Assessment: Chart Reviewed Documented by User: Elissa Smith MD 05/10/24 08:09 [facility] Past Medical History Medical History B12 deficiency Dyslipidemia Transaminitis Insomnia GERD (gastroesophageal reflux disease) Anxiety Family History Family History Father Hodgkin lymphoma Paternal Aunt Hodgkin lymphoma Paternal Uncle Hodgkin lymphoma Maternal Grandfather No problems noted. Paternal Grandmother No problems noted. Mother No problems noted. Family history of problems with anesthesia: No Surgical History Surgical History History of vasectomy History of Problems with Anesthesia: No Social History Social History Housing: Apartment Alcohol intake: current Alcohol intake frequency: a few times a month Alcohol type: beer Patient Tobacco Use Status: Never used Tobacco e-Cigarette/Vaping Use: Never Used Second Hand Smoke Exposure: No Advance Directives: No Advance Directives Information Provided: Yes service: No Current occupational status: employed Current occupational exposures/hazards: No Cognitive needs: No Hearing needs: No Vision needs: No Meds Allergies Allergy/AdvReac Type Severity Reaction Status Date / Time Penicillins [PCN] Allergy Intermediate Hives Verified 05/10/24 07:58 Exam Airway Mallampati Class: II TM Dist: >3cm Neck ROM: Full Heart: rrr Lungs: cta Assessment and Plan Assessment Anesthesia Assessment: Anesthesia Plan Discussed Final Anesthetic Review Family History of Problems with Anesthesia: No History of Problems with Anesthesia: No NPO: Yes ASA Class: III Final Preanesthetic Review: No Changes in Pt Med Stat, Meds/Allgs Chart Reviewed, Consent Obtained/Reviewed and Anes Risks/Benef Reviewed Patient Risk: Intermediate Procedure Risk: Low Anesthetic Plan Anesthetic Plan: MAC: Disposition: Standard PACU
[2024-05-10 08:06] VITALS: BP 141/84; PULSE 75; RESP 16; TEMP 36.4; O2SAT 98; BMI 28.9
[2024-05-10 09:08] VITALS: BP 109/71; PULSE 95; RESP 16; TEMP 36.9; O2SAT 94
[2024-05-10 09:23] VITALS: BP 115/80; PULSE 75; RESP 16; TEMP 36.9; O2SAT 95
--- NOTE | 2024-05-10 09:23 | PM.OP ---
Brief Operative Note Date of Service: 05/10/24 Pre-op diagnosis: GERD Post-op diagnosis: other (Same, Hiatal hernia) Procedure: EGD with biopsies Surgeon: Flaco Ward MD Anesthesia: MAC Was an Seam Rubbing Machine Operator used for this Procedure?: No Estimated blood loss (mL): 2.0 Pathology: other (A. Gastric antrum B. EG Junction at 35cm) Condition: stable Disposition: PACU
[2024-05-10 09:38] VITALS: BP 111/80; PULSE 71; RESP 16; TEMP 36.9; O2SAT 97
--- NOTE | 2024-05-10 09:52 | OP_ITS ---
DATE OF SERVICE: 05/10/2024 SURGEON: Flaco Ward MD INDICATIONS: The patient presents for evaluation of gastroesophageal reflux and abdominal discomfort. Full consent has been obtained from him for this, including risks of bleeding and perforation. PREOPERATIVE DIAGNOSIS: POSTOPERATIVE DIAGNOSIS: PROCEDURE PERFORMED: Esophagogastroduodenoscopy with biopsies. ESTIMATED BLOOD LOSS: COMPLICATIONS: ANESTHESIA: Monitored anesthesia care. ASSISTANTS: SPECIMENS: PREOPERATIVE DIAGNOSES: Gastroesophageal reflux and abdominal discomfort. POSTOPERATIVE DIAGNOSES: Gastroesophageal reflux and abdominal discomfort, small hiatal hernia, rule out Layne esophagus. DESCRIPTION OF PROCEDURE: The patient was placed in the left lateral decubitus position. The Olympus video gastroscope was passed in the posterior oropharynx and upper esophagus under direct vision. The scope was passed slowly to the distal esophagus. The gastroesophageal junction appeared at 35 cm. There was some slight irregularity, consistent with reflux, but no evidence of any esophagitis nor any definitive evidence of Layne's mucosa. The scope entered the stomach. There was a small hiatal hernia. The scope was advanced to the pylorus and the duodenum was cannulated to the descending portion. The duodenum including the bulb appeared normal without mass or ulceration. The scope was withdrawn back to the stomach. The gastric antrum had some areas of erythema and edema, but no ulceration or mass. There was good peristalsis. Biopsies were obtained from the gastric antrum. The scope was retroflexed, visualizing the proximal stomach carefully, which appeared normal, without any sign of mass or ulceration. The scope was straightened and withdrawn back to the esophagus. Biopsies were obtained at the EG junction at 35 cm. Proximal to this, the esophageal mucosa appeared normal. Scope was withdrawn from the patient. He tolerated the procedure well and was returned to recovery area in stable condition. IMPRESSION: 1. Small hiatal hernia, gastroesophageal reflux. 2. Mild gastritis. PLAN: The results of the biopsies will be checked. At this point, he reports that he is feeling well on a regimen of pantoprazole daily and sucralfate twice a day. I advised him that he could certainly continue that long-term. I did advise him he could try to stop the sucralfate at some point and just see how he does on the pantoprazole by itself. If things are stable, he can see me on a p.r.n. basis. Of note, a recent abdominal ultrasound was negative for gallstones. This has been discussed with his . MD DANIELA Butler/SHANDA / [id number] FRANK
== END 2024-05-10 10:04 | disposition home or self-care (01) ==
PROVIDERS: PCP Internal Medicine; Visit Provider Internal Medicine
PROC: 0DJ08ZZ Inspection of Upper Intestinal Tract, Via Natural or Artificial Opening Endoscopic (ICD-10-PCS; CPT 43235; principal; 2024-05-10 07:30)
DX: K29.50 Unspecified chronic gastritis without bleeding (principal); K21.9 Gastro-esophageal reflux disease without esophagitis; K76.0 Fatty (change of) liver, not elsewhere classified; K44.9 Diaphragmatic hernia without obstruction or gangrene; Z79.1 Long term (current) use of non-steroidal anti-inflammatories (NSAID); Z79.899 Other long term (current) drug therapy
CPT/HCPCS: 43239; 88305; 88313; 88342; J1100; J1596; J2003; J2704

== ENCOUNTER 2024-05-15 16:07 | Outpatient (AMB) | payer OTHER, SELFPAY ==
--- NOTE | 2024-05-15 16:20 | A.OFFPC_ITS ---
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: No Accompanied by: Self / Same As Patient Allergies Penicillins [PCN] Allergy (Intermediate, Verified 05/15/24 16:44) Hives Medication List - Last Reconciled 05/15/24 by Darshana Justin MD buspirone 10 mg PO TID 90 days ibuprofen 800 mg PO Q8H PRN 30 days pantoprazole 40 mg PO DAILY 90 days sertraline 25 mg PO DAILY 90 days sertraline 50 mg PO DAILY 90 days sucralfate 1 g PO BID 30 days topiramate 25 mg PO BEDTIME 90 days Tobacco use date assessed: 05/15/24 Dental Screening Dental Screen Date: 05/15/24 Did you have a dental visit in the last 12 months?: No Did you have a dental problem in the last 6 months where you did not have access to dental care?: No Was dental information given to patient?: Patient has dentist HPI HPI Comments History of Present Illness Details This is a 38-year-old male with GERD, transaminitis, anxiety and insomnia that comes today for follow-up on his conditions. GERD stable with PPIs and had a recent endoscopy in which will discuss the results with Gastroenterology soon. Still has elevated liver enzymes most likely due to fatty liver and was also advised to cut down on drinking alcohol. Anxiety and insomnia has been stable with sertraline and buspirone. Denies any chest pain or shortness on breath. He is overweight with a BMI of 29.5 and had weight goal be in the recent past which improved his weight. He would like to go back on it. [facility] Medical History (Updated 05/15/24 @ 16:52 by Darshana Justin MD) B12 deficiency Dyslipidemia Transaminitis Insomnia GERD (gastroesophageal reflux disease) Anxiety Surgical History History of vasectomy Family History Father Hodgkin lymphoma Paternal Aunt Hodgkin lymphoma Paternal Uncle Hodgkin lymphoma Maternal Grandfather No problems noted. Paternal Grandmother No problems noted. Mother No problems noted. Social History Housing: Apartment Alcohol intake: current Alcohol intake frequency: a few times a month Alcohol type: beer Patient Tobacco Use Status: Never used Tobacco e-Cigarette/Vaping Use: Never Used Second Hand Smoke Exposure: No service: No Current occupational status: employed Current occupational exposures/hazards: No Cognitive needs: No Hearing needs: No Vision needs: No Questionnaire PHQ-9 Over the last 2 weeks, how often have you been bothered by any of the following problems? 1. Little interest or pleasure in doing things: not at all 2. Feeling down, depressed, or hopeless: not at all 3. Trouble falling or staying asleep, or sleeping too much: not at all 4. Feeling tired or having little energy: not at all 5. Poor appetite or overeating: not at all 6. Feeling bad about yourself - or that you are a failure or have let yourself or your family down: not at all 7. Trouble concentrating on things, such as reading the newspaper or watching television: not at all 8. Moving or speaking so slowly that other people could have noticed. Or the opposite - being so fidgety or restless that you have been moving around a lot more than usual: not at all 9. Thoughts that you would be better off or of hurting yourself in some way: not at all Total score: 0 Depression Screening Interpretation: Negative Depression Screening Done: Yes 22998 - PHQ-9 Billing: Yes Source: Developed by Drs. Flaco Brambila, Mckenzie Barr, Arturo Miranda and colleagues, with an educational harish from [employer]. Thrive Questionnaire Date Thrive assessed: 05/15/24 I am a: Patient What is your living situation today?: I have a steady place to live Within the past 12 months, did the food you bought not last and you didn't have the money to get more?: Never true Within the past 12 months, did you worry whether your food would run out before you got money to buy more?: Never true Do you have trouble paying for medicines?: No Do you have trouble getting transportation to medical appointments?: No Do you have trouble paying your heating and electricity bill?: No Do you have trouble taking care of your child, family member or friend?: No Do you have trouble with day-to-day activities such as bathing, preparing meals, shopping, managing finances, etc.?: No Are you currently unemployed and looking for a job?: No Are you interested in more education?: No Please select the resources that you would like help with: None Currently or been in a relationship where the following occur: No concerns reported THRIVE Score: 0 AUDIT C Alcohol Use Questionnaire (AUDIT-C) 1. How often do you have a drink containing alcohol?: 2-4 times a month 2. How many drinks containing alcohol do you have on a typical day when you are drinking?: 7 to 9 3. How often do you have six or more drinks on one occasion?: Monthly Total Score: 7 Score Reviewed/Action Taken: Yes SINGH-7 AMB Questionnaire SINGH-7 Date SINGH - 7 assessed: 05/15/24 Feeling nervous, anxious, or on edge: 0 = Not at all Not being able to stop or control worryin = Not at all Worrying too much about different things: 0 = Not at all Trouble relaxin = Not at all Being so restless that it is hard to sit still: 0 = Not at all Becoming easily annoyed or irritable: 0 = Not at all Feeling afraid as if something awful might happen: 0 = Not at all Total SINGH-7 score (0-4 normal; 5-9 mild; 10-14 moderate; 15-21 severe): 0 Source: Developed by Drs. Flaco Brambila, Mckenzie Barr, Arturo Miranda and colleagues, with an educational harish from [employer]. SINGH-7 Assessment Billing SINGH-7 Assessment Tool: SINGH-7 Assessment 69038 Review of Systems Const All systems reviewed & are unremarkable except as noted in HPI and below Card Denies chest pain at rest, Denies chest pain with activity, Denies edema, Denies irregular heart rhythm, Denies claudication, Denies dyspnea, Denies dyspnea on exertion, Denies orthopnea, Denies paroxysmal nocturnal dyspnea and Denies slow heart rate Resp Denies cough, Denies dyspnea and Denies dyspnea on exertion GI Denies abdominal pain, Denies change in bowel habits, Denies excessive flatus, Denies nausea and Denies vomiting Physical exam (Primary Care) Vital Signs: Last Vital Signs BP 120/82 05/15/24 16:25 BMI result Body Mass Index 29.5 BMI Assessment/Plan discussion: High BMI High, discussed plan: lifestyle, weight reduction, dietary and physical activity Tobacco/Smoking Status: Tobacco use Status Tobacco use date assessed 05/15/24 05/15/24 16:29 Patient Tobacco Use Status Never used Tobacco 05/15/24 16:25 Tobacco use type 10/27/22 16:28 e-Cigarette/Vaping Use Never Used 05/15/24 16:25 PHQ-9: PHQ-9 Score PHQ-9: Total score 0 05/15/24 16:50 Depression Screening Interpretation: Negative Thrive Assessment: Date of Thrive Assessment Date Thrive assessed 05/15/24 05/15/24 16:25 Currently or been in a relationship where the following occur: No concerns reported Resp Effort & Inspection: normal respiratory effort Auscultation: clear to auscultation bilaterally Cardio Jugular venous distension: no JVD Rate: regular rate Rhythm: regular rhythm Heart sounds: S1 normal heart sound present and S2 normal heart sound present Extrem General: Yes full ROM Office Procedures Flu Questionnaire Does the patient have a severe egg allergy?: No Immunizations Fluarix Triv [id number] (PF) 45 mcg (15 mcg x 3)/0.5 mL IM syringe Performing Provider: Darshana Justin MD [facility] Documented (not given) by: TOBI Fine on 05/15/24 16:30 Reason Not Given: Patient Refused Coding Level of Care Code Est Pt Level 4 (23542) Complex EM visit Add On G2211 Diagnoses Gastroesophageal reflux disease, unspecified whether esophagitis present K21.9 Esophagitis presence: esophagitis presence not specified Anxiety F41.9 Transaminitis R74.01 Insomnia, unspecified type G47.00 Insomnia type: unspecified Overweight (BMI 25.0-29.9) E66.3 Additional Codes SINGH-7 Assessment Billing - SINGH-7 Assessment Tool: SINGH-7 Assessment 06767 ([id number]) PHQ-9 - 17687 - PHQ-9 Billing: Yes ([id number]) Time Spent (min) 22 Assessment & Plan Assessment & Plan (1) GERD (gastroesophageal reflux disease): Code(s): K21.9 - Gastro-esophageal reflux disease without esophagitis Category: Medical Qualifiers: Esophagitis presence: esophagitis presence not specified Qualified Code(s): K21.9 - Gastro-esophageal reflux disease without esophagitis (2) Anxiety: Code(s): F41.9 - Anxiety disorder, unspecified Category: Medical (3) Transaminitis: Code(s): R74.01 - Elevation of levels of liver transaminase levels Category: Medical (4) Insomnia: Code(s): G47.00 - Insomnia, unspecified Category: Medical Qualifiers: Insomnia type: unspecified Qualified Code(s): G47.00 - Insomnia, unspecified (5) Overweight (BMI 25.0-29.9): Code(s): E66.3 - Overweight Category: Medical Plan For GERD continue Carafate and pantoprazole. Follow-up with Gastroenterology for endoscopy results. For anxiety and insomnia continue sertraline and buspirone. Advised to cut down on drinking alcohol due to transaminitis. Will start GLP 1 for his overweight. Orders: Orders Influenza [id number] Immunization Today Z23 - Encounter for immunization Medications: New semaglutide (weight loss) (Wej luisvceline) administer weeks 1 through 4 of therapy 0.25 mg (0.5 mL) subcut QWEEK 2 mL 0RF 4 weeks E66.3 - Overweight topiramate 50 mg PO BEDTIME 90 tabs 1RF 90 days Discontinued topiramate Discontinued Reason: Patient Completed Course 25 mg PO BEDTIME 90 days 90 tabs 1RF
[2024-05-15 16:25] VITALS: BP 120/82; BMI 29.5
== END 2024-05-15 16:50 | disposition home or self-care (01) ==
PROVIDERS: PCP Internal Medicine; Visit Provider Internal Medicine
DX: K21.9 Gastro-esophageal reflux disease without esophagitis (principal); F41.9 Anxiety disorder, unspecified; R74.01 Elevation of levels of liver transaminase levels; G47.00 Insomnia, unspecified; E66.3 Overweight; Z23 Encounter for immunization

== ENCOUNTER → 2024-05-15 16:07 | Outpatient (BNVA) | payer OTHER, SELFPAY | PROVIDERS: PCP Internal Medicine; Visit Provider Internal Medicine | DX: K21.9 Gastro-esophageal reflux disease without esophagitis (principal); F41.9 Anxiety disorder, unspecified; E66.3 Overweight; R74.01 Elevation of levels of liver transaminase levels; G47.00 Insomnia, unspecified; Z68.29 Body mass index [BMI] 29.0-29.9, adult; Z28.21 Immunization not carried out because of patient refusal | CPT/HCPCS: 90471; 96127; 99212 ==

== ENCOUNTER 2025-02-18 07:36 | Outpatient (REF) | payer OTHER, SELFPAY ==
--- OUTSIDE RECORDS SUMMARY | 2024-05-10 03:30 | XMS_ITS ---
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 Name Role Phone Darshana Santos Primary Care Provider Unavailab Flaco Osborne Unavailable [phone] REASON FOR VISIT epigastric pain, gerd Problems Problem Type SNOMED Code ICD Code Onset Dates Problem Status W/U Status Risk Notes Problem Gastroesophageal reflux disease (944583987) Esophageal reflux disease (K21.9) Active confirmed Problem Gastritis (4619113) Gastritis (K29.70) Active confirmed Encounters Encounter Location Date Provider Diagnosis [facility] [place] [facility] [address], [place] [id number] 05/10/2024 Flaco Ward Esophageal reflux disease K21.9 ; Hiatal hernia K44.9 ; Gastritis K29.70 and Abdominal pain R10.9 Assessments Encounter Date Diagnosis (ICD Code) Assessment Notes Treatment Notes Treatment Clinical Notes Section Notes 05/10/2024 Esophageal reflux disease (ICD-10 - K21.9) 05/10/2024 Hiatal hernia (ICD-10 - K44.9) 05/10/2024 Gastritis (ICD-10 - K29.70) 05/10/2024 Abdominal pain (ICD-10 - R10.9) Plan Of Treatment No Information Progress Notes * SAVANAH LEWIS ADOB: 4 (39 yo M)Acc No.[id number]:05/10/2024 EGD/MAC Patient: SAVANAH STOREY Provider: Karen Ward MD :1985 A ge:38 Y S ex:Male Date:05/10/2024 Address:[address] [place] [address] [id number] Pcp:Darshana Justin Subjective: * Chief Complaints: * 1 . Epigastric pain, gerd. * Medical History: Objective: * Vitals: Assessment: * Assessment: 1. E sophageal reflux disease - K21.9 (Primary) 2 . H iatal hernia - K44.9? 3. G astritis - K29.70 4 . A bdominal pain - R10.9 ? Plan: * Treatment: * Procedure Codes: 4 3239 UPPER GI ENDOSCOPY, BIOPSY * * The named appointment provid er may or may not be the originator of this progress note, and it is not deemed complete until electronically signed by the appointment provider. Sign off status: Pending * Provider: Karen Ward MD Date: 0 05/10/2024 Generated for James mcgill/Susana/Maddyitting on: 07:39 AM EDT
--- OUTSIDE RECORDS SUMMARY | 2025-02-18 07:39 | XMS_ITS | Patient Health Record ---
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 Role Phone Darshana Santos Primary Care Provider Flaco Norton [phone] Allergies Allergen (clinical drug ingredient) Drug/Non Drug Allergy documented on EMR Reaction Allergy Type Onset Date Status Penicillin Unknown Drug Allergy Active Results Component Value Reference Range Notes Pathology Reviewed date:05/16/2024 10:40:22 PM Interpretation: Performing Lab:[facility], [address] [place] [id number] Notes/Report: Pathology (Not yet reviewed by provider) Interpretation: Performing Lab:[facility], [address] [place] [phone] Notes/Report: Reason For Referral No Information Medications Medication SIG (Take, Route, Frequency, Duration) Notes Start Date End Date Status busPIRone HCl 7.5 MG TOME SAGE TABLETA DO S VECES AL D?A Oral; Duration: 30 Active Sertraline HCl 25 MG TAKE 1 TABLETS BY MOUTH EVERY DAY Oral; Duration: 90 Active Wegovy 0.25 MG/0.5ML 0.25 MG (0.5 ML) SUBCUTANEOUSLY EVERY WEEK FOR 28 DAYS ADMINISTER WEEKS 1 THROUGH 4 OF THERAPY Subcutaneous; Duration: 28 Not-Taking Sucralfate 1 GM Oral; Duration: 30 Active Topiramate 25 MG Oral; Duration: 90 Active Pantoprazole Sodium 40 MG Oral; Duration: 90 Active Sildenafil Citrate 100 MG TAKE ONE TABLET BY MOUTH NEEDED APPROXIMATELY 60 MINUTES BEFORE INTENDED SEXUAL ACTIVITY. Oral; Duration: 30 N5201,Unavai lable Active Omeprazole 20 MG 1 capsule Orally Onc e a day Not-Taking Ibuprofen 800 MG 1 tablet with food o r milk as needed Orally prn PRN Active Folic Acid 5 MG 1 capsule Orally Onc e a day Active Immunizations Vaccine Route Administration Date Status Comme nts Influenza Unknown 03/20/2019 Refused Influenza Unknown 01/18/2024 Refused Social History Tobacco Use: Social History Observation Description Date Details (start date - stop date) Never Smoker NA - NA Tobacco Use/Smoking Question Answer Notes Patient is a nonsmoker Alcohol Screen Question Answer Notes Did you have a drink contain ing alcohol in the past year? Yes How often did you have a dri nk containing alcohol in the past year? Monthly or less (1 point) How many drinks did you have on a typical day when you were drinking in the past year? 1 or 2 drinks (0 point) How often did you have 6 or more drinks on one occasion in the past year? Never (0 point) Points 1 Interpretation Negative Section Notes: Nonsmoker; drinks 12 beers e very Fri, Sat, and Monday Nonsmoker; drinks 12 beers e very Fri, Sat, and Monday Nonsmoker; drinks 12 beers e very Fri, Sat, and Monday--he and his report that he has been abstinent from alcohol since January of 2018. Nonsmoker; drinks 12 beers e very Fri, Sat, and Monday--he and his report that he has been abstinent from alcohol since January of 2018. Having occasional drink as of the 01/2024 OV Problems Problem Type SNOMED Code ICD Code Onset Dates Problem Status W/U Status Risk Notes Problem Epigastric pain (69357903) Abdominal pain, epigastric (R10.13) Active confirmed Problem Elevated liver enzymes level (959884853) Elevated liver enzymes (R74.8) Active confirmed Problem Fatty liver (694839889) Fatty liver (K76.0) Active confirmed Problem Gastroesophageal reflux disease (923800175) Gastroesophageal reflux disease, esophagitis presence not specified (K21.9) Active confirmed Problem Gastritis (1957988) Gastritis (K29.70) Active c onfirmed Problem Gastroesophageal reflux disease (869678269) GERD (gastroesophageal reflux disease) (K21.9) Active confirmed Problem Elevated liver enzymes level (463817438) Elevated liver function tests (R94.5) Active confirmed Problem Gastroesophageal reflux disease (011793518) Esophageal reflux disease (K21.9) Active confirmed Problem Liver function tests abnormal (614959072) Abnormal liver function test (R94.5) Active confirmed Encounters Encounter Location Date Provider Diagnosis [facility] [place] [address] [place] [phone] 05/10/2024 Flaco Ward Esophageal reflux disease K21.9 ; Hiatal hernia K44.9 ; Gastritis K29.70 and Abdominal pain R10.9 Assessments Encounter Date Diagnosis (ICD Code) Assessment Notes Treatment Notes Treatment Clinical Notes Section Notes 05/10/2024 Hiatal hernia (ICD-10 - K44.9) 05/10/2024 Esophageal reflux disease (ICD-10 - K21.9) 05/10/2024 Gastritis (ICD-10 - K29.70) 05/10/2024 Abdominal pain (ICD-10 - R10.9) Plan Of Treatment Pending Test Test Name Order Date LIVER PROFILE 03/29/2019 LIVER PROFILE 07/25/2019 CERULOPLASMIN 07/27/2017 Pathology 05/10/2024 US abdomen comp w elastography 4 Future Test Test Name Order Date UPPER GI ENDOSCOPY 01/18/2024 Insurance Providers Payer Name Payer Address Payer Phone Subscriber Number Group Number Insured Name Patient Relationship to Insured Coverage Start Date Coverage End Date [facility] [address] [place], [place] [id number] SAVANAH LEWIS Self - patient is the insured MEDICAID OF [facility] [address] [place] [address] [phone] [id number] SAVANAH LEWIS Self - patient is the insured Medical (General) History Medical History History ICD Code Denies OR,DM,CVA,Lung disease,renal dise ase Anemia--sees Dr. Schulz--- normal iron s tudies, B12, and folate level Elevated LFT's--due to alcoh ol and component of fatty liver--- liver workup in 2018 was completely negative otherwise Surgical History Surgery Date(Month/Year)
[2025-02-18 09:11] LABS: Alanine Aminotransferase 42 U/L (0-40); Albumin Level 4.6 g/dL (3.5-5.0); Alkaline Phosphatase 99 U/L (39-117); Anion Gap 12 (12-20); Aspartate Amino Transferase 31 U/L (5-37); Blood Urea Nitrogen 19 mg/dL (9-16); Calcium 9.3 mg/dL (8.4-10.2); Carbon Dioxide 24 mmol/L (22-29); Chloride 110 mmol/L (96-108); Cholesterol 220 mg/dL (<200); Estimated Glomerular Filt Rate > 60; HDL Cholesterol 53 mg/dL (>40); Potassium 4.8 mmol/L (3.3-5.1); Sodium 141 mmol/L (135-145); Total Protein 7.8 g/dL (6.5-8.0); Triglycerides 177 mg/dL (<150)
== END 2025-02-18 07:37 | disposition home or self-care (01) ==
LOC: HO.LAB 07:36
PROVIDERS: PCP Internal Medicine; Visit Provider Internal Medicine
DX: E78.5 Hyperlipidemia, unspecified (principal)
CPT/HCPCS: 36415; 80053; 80061

== ENCOUNTER → 2025-02-24 08:18 | Outpatient (BNVA) | payer SELFPAY | PROVIDERS: PCP Internal Medicine; Visit Provider Physician Assistant Medical | DX: Z02.79 Encounter for issue of other medical certificate (principal) ==